=== PATIENT | male | born 1970 ===

== ENCOUNTER 2016-11-06 10:42 | Emergency (ER) | payer OTHER ==
[2016-11-06] MEDS ORDERED: Ketorolac INJ* 60 MG/2 ML VIAL IM ONE (13:36)
--- NOTE | 2016-11-06 14:18 | UC ---
Back Pain HPI - HPI Summary HPI Summary: Patient presents to with CC of lower back pain which is 10/10 throbbing with spasms with radiation to the left lower leg with numbness and tingling. Denies known injury. He has been lifting heavy objects recently. Previous back surgery of disc herniation. Denies bladder or bowel dysfunction. Denies other injuries at this time. - History of Current Complaint Chief Complaint: UCBackPain Stated Complaint: BACK PAIN Time Seen by Provider: 11/06/16 12:46 Hx Obtained From: Patient Onset/Duration: Sudden Onset Timing: Constant Severity Initially: Moderate Severity Currently: Severe Pain Intensity: 9 Pain Scale Used: 0-10 Numeric Back Pain: Is Discrete @ - lower spine radiating to the left leg Aggravating: Movement, Bending Alleviating: Rest, Position Associated Signs And Symptoms: Positive: Weakness, Numbness, Tingling - Risk Factors AAA Risk Factors: Negative TAD Risk Factors: Negative Cauda Equina Risk Factors: Negative Epidural Abscess Risk Factors: Negative - Allergies/Home Medications Allergies/Adverse Reactions: Allergies Allergy/AdvReac Type Severity Reaction Status Date / Time Penicillins Allergy Hives/Diff. Verified 11/06/16 11:14 Breathing/I tching PMH/Surg Hx/FS Hx/Imm Hx Previously Healthy: Yes - Surgical History Surgical History: Yes Surgery Procedure, Year, and Place: back sx. hiatal hernia. femur - Family History Known Family History: Positive: Unknown - Social History Occupation: Employed Full-time Lives: With Family Alcohol Use: Occasionally Substance Use Type: None Smoking Status (MU): Never Smoked Tobacco Review of Systems Constitutional: Negative Skin: Negative Respiratory: Negative Cardiovascular: Negative Motor: Decreased ROM Neurovascular: Decreased Sensation Musculoskeletal: Arthralgia Neurological: Negative Psychological: Negative All Other Systems Reviewed And Are Negative: Yes Physical Exam Triage Information Reviewed: Yes Appearance: Well-Appearing, No Pain Distress, Well-Nourished Vital Signs: Initial Vital Signs Temp 97.9 F 11/06/16 11:10 Pulse 85 11/06/16 11:10 Resp 16 11/06/16 11:10 BP 156/104 11/06/16 11:10 Pulse Ox 98 11/06/16 11:10 Vital Signs Reviewed: Yes Eye Exam: Normal Eyes: Positive: Conjunctiva Clear Neck exam: Normal Neck: Positive: Supple, Nontender, No Lymphadenopathy Respiratory Exam: Normal Respiratory: Positive: Chest non-tender, Lungs clear Cardiovascular Exam: Normal Cardiovascular: Positive: RRR Musculoskeletal: Positive: Other: - Thorough physical exam was performed, focusing on thoracic and lumbar special tests and ROM. Due to patient pain around injury, physical exam was limited. Limited ROM. Hip flexion and extension, knee extension, dorsiflexion, great toe extension and plantar flexion intact. Rotating at hips limited d/t pain. Nerve roots L4-S2 reflexes intact. L1-S2 nerve root sensory intact. No saddle anesthesia. Gait abnormal. Neurological Exam: Normal Neurological: Positive: Alert, Muscle Tone Normal Psychological Exam: Normal Psychological: Positive: Normal Response To Family Skin Exam: Normal Back Pain Course/Dx - Course Course Of Treatment: IMPRESSION: 1. DEGENERATIVE DISC DISEASE AND OSTEOARTHRITIS, MOST PRONOUNCED FROM L3 L4-L5 S1. 2. THERE IS MODERATE NARROWING OF THE CENTRAL CANAL AT L3-L4 WITH SEVERE NARROWING AT. L4-L5. 3. THERE IS MULTILEVEL NEURAL FORAMINAL NARROWING DESCRIBED ABOVE. back pain without relief with OTC. Pain medication and flexeril given as rx. Recommended f/u with dr munoz. Patient is OK for discharge. - Differential Dx/Diagnosis Differential Diagnosis/HQI/PQRI: Fracture, Herniated Disc, Strain, Sprain Provider Diagnoses: Spinal Stenosis Back Pain Discharge - Discharge Plan Condition: Stable Disposition: HOME Prescriptions: Cyclobenzaprine TAB* [Flexeril TAB*] 10 mg PO BID PRN #14 tab PRN Reason: Pain HYDROcodone/ACETAMIN 5-325 MG* [[place] 5-325 TAB*] 1 tab PO Q4H PRN #18 tab MDD 6 PRN Reason: Pain Patient Education Materials: Lumbar Spinal Stenosis (ED), Lumbar Radiculopathy (ED) Referrals: Shady Munoz MD [Medical Doctor] - Bin Galo MD [Primary Care Provider] -
--- NOTE | 2016-11-06 14:42 | RAD ---
HISTORY: Left leg pain, history of previous surgery COMPARISONS: None relevant available at the time of dictation TECHNIQUE: Multiple contiguous axial CT scans were obtained of the lumbar spine without intravenous contrast, with coronal and sagittal multiplanar reformations. FINDINGS: SPINAL CANAL: Evaluation of the central canal is limited on CT technique; however, there is no obvious canalicular mass or epidural hemorrhage. ALIGNMENT: The alignment is normal. VERTEBRAL BODIES: There is mild anterolateral marginal osteophyte formation. JOINTS: There is facet hypertrophic change most pronounced at L4-L5 and L5-S1 MUSCULATURE: Unremarkable INTERVERTEBRAL DISCS: There is diffuse loss of intervertebral disc height throughout the spine. AXIAL IMAGES: T11-T12: There is no osseous neural foraminal narrowing or central canal stenosis. T12-L1: There is no osseous neural foraminal narrowing or central canal stenosis. L1-L2: There is no osseous neural foraminal narrowing or central canal stenosis. L2-L3: There is no osseous neural foraminal narrowing or central canal stenosis. L3-L4: There is a broad-based disc bulge with bilateral facet hypertrophy. There is moderate narrowing of the central canal. There is mild neural foraminal narrowing. L4-L5: There is broad-based disc bulge. There is ligamentous and facet hypertrophy. There is severe narrowing of the central canal. There is moderate bilateral neural foraminal narrowing. L5-S1: There is bilateral facet hypertrophy with marginal osteophyte formation at the neural foramina bilaterally. There is severe left and moderate right neural foraminal narrowing. There is no significant central canal stenosis. SOFT TISSUES: The visualized soft tissues of the abdomen are unremarkable. OTHER: There is bridging osteophyte formation across the right SI joint IMPRESSION: 1. DEGENERATIVE DISC DISEASE AND OSTEOARTHRITIS, MOST PRONOUNCED FROM L3 L4-L5 S1. 2. THERE IS MODERATE NARROWING OF THE CENTRAL CANAL AT L3-L4 WITH SEVERE NARROWING AT L4-L5. 3. THERE IS MULTILEVEL NEURAL FORAMINAL NARROWING DESCRIBED ABOVE.
== END 2016-11-06 15:07 | disposition home or self-care (01) ==
LOC: UCEAST 10:42
DX: M48.06 Spinal stenosis, lumbar region (principal); M51.36 Other intervertebral disc degeneration, lumbar region; M47.9 Spondylosis, unspecified
CPT/HCPCS: 72131; 99202; G0463; J1885

== ENCOUNTER 2018-11-19 08:54 | Emergency (ER) | payer OTHER ==
[2018-11-19 09:05] VITALS: BP 136/96
--- NOTE | 2018-11-19 10:22 | UC ---
Skin Complaint HPI - HPI Summary HPI Summary: 48-year-old male presents with complaint of a tender, draining, lesion to his left lower leg that started yesterday. States initially looked like a pimple that when he awoke today he had become much larger and now had an area of redness around the lesion. States he had a similar lesion appears to his left elbow approximately 2 weeks ago after he bumped his elbow and then one week ago scraped his right hand on some siding and developed similar lesions over the third and fifth knuckles. States these lesions have crusted over blood seemed very slow to heal. He is concerned because his parents have history of diabetes. Denies fever or chills. - History of Current Complaint Chief Complaint: UCSkin Time Seen by Provider: 11/19/18 09:09 Stated Complaint: LACERATIONS Hx Obtained From: Patient Pain Intensity: 0 - Allergy/Home Medications Allergies/Adverse Reactions: Allergies Allergy/AdvReac Type Severity Reaction Status Date / Time Penicillins Allergy Hives/Diff. Verified 11/19/18 09:05 Breathing/I tching PMH/Surg Hx/FS Hx/Imm Hx Previously Healthy: Yes - Denies significant PMH - Surgical History Surgical History: Yes Surgery Procedure, Year, and Place: back [id number] PART OF DISK. hiatal hernia. BROKEN FEMUR RIGHT REPAIRED HARDWARE REMOVED - Family History Known Family History: Positive: Diabetes - Mother and Father - Social History Occupation: Employed Full-time Lives: Alone Alcohol Use: Occasionally Substance Use Type: None Smoking Status (MU): Never Smoked Tobacco Review of Systems All Other Systems Reviewed And Are Negative: Yes Constitutional: Negative: Fever, Chills Skin: Positive: Other - See HPI Respiratory: Positive: Negative Cardiovascular: Positive: Negative Gastrointestinal: Positive: Negative Genitourinary: Positive: Negative Musculoskeletal: Positive: Negative Neurological: Positive: Negative Is Patient Immunocompromised?: No Physical Exam - Summary Physical Exam Summary: GENERAL APPEARANCE: Well developed, well nourished, alert and cooperative, and appears to be in no acute distress. CARDIAC: Normal S1 and S2. No S3, S4 or murmurs. Rhythm is regular. There is no peripheral edema, cyanosis or pallor. Extremities are warm and well perfused. Capillary refill is less than 2 seconds. Peripheral pulses intact. LUNGS: Clear to auscultation without rales, rhonchi, wheezing or diminished breath sounds. ABDOMEN: Positive bowel sounds. Soft, nondistended, nontender. No guarding or rebound. No masses or hepatosplenomegally. MUSKULOSKELETAL: ROM intact to all extremities. No joint erythema or tenderness. Normal muscular development. Normal gait. SKIN: Skin normal color, texture and turgor. Small, crusted lesions < 1 cm in diameter to the left elbow and the right hand over the 3rd and 5th MCPs without erythema, edema, or drainage. 1.5 cm pustular lesion with oozing and 5.5 cm x 7 cm area of erythema extending around the margins of the lesion to his left anterior mid lower leg. Culture was obtained and sent. Triage Information Reviewed: Yes Vital Signs: Initial Vital Signs Temp 98.7 F 11/19/18 08:58 Pulse 87 11/19/18 08:58 Resp 18 11/19/18 08:58 BP 136/96 11/19/18 08:58 Pulse Ox 99 11/19/18 08:58 Vital Signs Reviewed: Yes Course/Dx - Course Course Of Treatment: 48-year-old male presents with complaint of a tender, draining, lesion to his left lower leg that started yesterday. States initially looked like a pimple that when he awoke today he had become much larger and now had an area of redness around the lesion. States he had a similar lesion appears to his left elbow approximately 2 weeks ago after he bumped his elbow and then one week ago scraped his right hand on some siding and developed similar lesions over the third and fifth knuckles. States these lesions have crusted over blood seemed very slow to heal. He is concerned because his parents have history of diabetes. Denies fever or chills. Afebrile. Vital signs stable. Patient had small, crusted lesions < 1 cm in diameter to the left elbow and the right hand over the 3rd and 5th MCPs without erythema, edema, or drainage. 1.5 cm pustular lesion with oozing and 5.5 cm x 7 cm area of erythema extending around the margins of the lesion to his left anterior mid lower leg. Culture was obtained and sent. Remainder of exam was unremarkable. Random finger glucose was obtained and was 98 mg/dL. Discussed with patient that based on his history and the appearance of the lesion I suspect that he may have a local skin infection with MRSA. Patient was prescribed Bactrim DS 1 tab twice a day 7 days and also given a prescription for mupirocin ointment twice a day to affected areas until healed. He is to follow-up with his primary care provider in 3-5 days for recheck of the wounds. Anticipatory guidance and warning symptoms were reviewed with the patient. Verbalizes understanding and agrees with plan of care. - Differential Diagnoses - Skin Complaint Differential Diagnoses: Contact Dermatitis, Impetigo, MRSA, Poison [place], Poison [place] - Diagnoses Provider Diagnosis: Wound of left lower extremity Discharge - Sign-Out/Discharge Documenting (check all that apply): Patient Departure All imaging exams completed and their final reports reviewed: No Studies - Discharge Plan Condition: Stable Disposition: HOME Prescriptions: Mupirocin 2% OINT* [Bactroban 2 % Oint*] 1 applic TOPICAL BID #1 tube Sulfamethox/Trimethoprim DS* [Bactrim DS 800/160 TAB*] 1 tab PO BID #14 tab Patient Education Materials: MRSA (Methicillin-Resistant Staphylococcus Aureus ) (ED) Referrals: Luigi Adkins MD [Primary Care Provider] - [facility] [place] [facility] [Outside] (Call if you need assistance establishing with a primary care provider) Additional Instructions: I suspect that you have and infection with a bacteria called MRSA which why your wounds are not healing well and why new ones are appearing. We will treat you with an oral and topical antibiotic. Take Bactrim DS 1 tab twice a day for 7 days. Apply mupirocin ointment to the affected area(s) twice a day. Cover any wounds that are oozing with a bandage. Cleanse the wounds daily with a mild soap and water. Follow up with your primary care provider in 3-5 days for a recheck of the wounds. Seek immediate medical attention in the emergency room if you develop fever greater than 100.5 F, have redness that spreads, red streaking, or any worsening of symptoms. - Billing Disposition and Condition Condition: STABLE Disposition: Home
--- NOTE | 2018-11-21 15:38 | UC ---
- Progress Note Progress Note: Wound culture final with 1) Staph suseptible to bactrim 2) Strep pyogenes with no antibiotic reporting to bactrim. ----Bactrim generally has mixed activity against Strep pyogenes. Please call pt and if he is improving - no change If still having symptoms - will change his antibiotic. Course/Dx - Diagnoses Provider Diagnoses: Wound of left lower extremity Discharge - Sign-Out/Discharge Documenting (check all that apply): Post-Discharge Follow Up All imaging exams completed and their final reports reviewed: No Studies - Discharge Plan Condition: Stable Disposition: HOME Prescriptions: Mupirocin 2% OINT* [Bactroban 2 % Oint*] 1 applic TOPICAL BID #1 tube Sulfamethox/Trimethoprim DS* [Bactrim DS 800/160 TAB*] 1 tab PO BID #14 tab Patient Education Materials: MRSA (Methicillin-Resistant Staphylococcus Aureus ) (ED) Referrals: [facility] [place] [facility] [Outside] (Call if you need assistance establishing with a primary care provider) Luigi Adkins MD [Primary Care Provider] - Additional Instructions: I suspect that you have and infection with a bacteria called MRSA which why your wounds are not healing well and why new ones are appearing. We will treat you with an oral and topical antibiotic. Take Bactrim DS 1 tab twice a day for 7 days. Apply mupirocin ointment to the affected area(s) twice a day. Cover any wounds that are oozing with a bandage. Cleanse the wounds daily with a mild soap and water. Follow up with your primary care provider in 3-5 days for a recheck of the wounds. Seek immediate medical attention in the emergency room if you develop fever greater than 100.5 F, have redness that spreads, red streaking, or any worsening of symptoms. - Billing Disposition and Condition Condition: STABLE Disposition: Home
== END 2018-11-19 11:02 | disposition home or self-care (01) ==
LOC: UCEAST 08:54
DX: S81.802A Unspecified open wound, left lower leg, initial encounter (principal); X58.XXXA Exposure to other specified factors, initial encounter; Y92.9 Unspecified place or not applicable; Z88.0 Allergy status to penicillin
CPT/HCPCS: 87070; 87077; 87184; 87186; 87205; 87640; 87641; 99212; G0463